=== PATIENT | female | born 1990 ===

== ENCOUNTER 2024-08-12 14:45 | Inpatient (IN) | payer OTHER ==
[~2024-08-12] VITALS: Ht 162.6 cm; Wt 87.5 kg
[2024-08-20 12:51] VITALS: BP 122/72
[2024-08-20] MEDS ORDERED: AMPICILLIN SODIUM 2,000 MG VIAL IV ONE (13:00)
[2024-08-20] MEDS ORDERED: AMPICILLIN SODIUM 2,000 MG VIAL ONE (13:15)
[2024-08-20] MEDS ORDERED: PRENATAL TABLE1 EAC1 PO (13:32)
[2024-08-20 13:56] LABS: HEMATOCRIT 33.3 % (36.0-45.00); HEMOGLOBIN 10.9 g/dL (12.0-15.00); MEAN CELL VOLUME 84.8 fL (80.00-100.00); MEAN CORPUSCULAR HEMOGLOBIN 27.6 pg (27.00-32.0); MEAN CORPUSCULAR HGB CONC 32.6 g/dl (32.0-36.0); PLATELET COUNT 206 K/uL (150-450); RED BLOOD COUNT 3.93 M/uL (4.00-6.00); RED CELL DISTRIBUTION WIDTH 14.6 % (11.5-14.5)
[2024-08-20] MEDS ORDERED: RINGERS SOLUTION,LACTATED 1,000 ML IV SCH (14:15)
[2024-08-20 14:37] LABS: INR < 0.93; PARTIAL THROMBOPLASTIN TIME 27.6 SECONDS (22.0-34.0)
[2024-08-20 14:47] LABS: PROTHROMBIN TIME 10.2 SECONDS (9.0-11.5)
[2024-08-20 15:24] VITALS: BP 109/66
[2024-08-20 15:34] LABS: ALBUMIN 2.8 gm/dL (3.4-5.0); BILIRUBIN TOTAL 0.3 mg/dL (0.3-1.2); CALCIUM 9.2 mg/dL (8.5-10.1); CREATININE SERUM 0.86 mg/dL (0.55-1.02); GFR 75.53; GLOBULINA 4.2 G/DL (2.4-3.5); POTASSIUM 3.99 mEq/L (3.5-5.1)
[2024-08-20] MEDS ORDERED: MISOPROSTOL 25 MCG TABLET ONE (16:50)
[2024-08-20] MEDS ORDERED: AMPICILLIN SODIUM 1,000 MG VIAL IV SCH (17:00)
[2024-08-20] MEDS ORDERED: MISOPROSTOL 25 MCG TABLET VAG ONE (17:15)
[2024-08-20 20:27] VITALS: BP 131/74
[2024-08-20 23:39] VITALS: BP 133/76
[2024-08-21] VITALS (10 sets, daily range): BP systolic 113–143; BP diastolic 58–76
[2024-08-21] MEDS ORDERED: OXYTOCIN 20 UNITS/500ML RL PIGGYBAG IV ONE (07:17)
[2024-08-21] MEDS ORDERED: OXYTOCIN 500 ML IV ONE (08:00)
[2024-08-21] MEDS ORDERED: MORPHINE SULFATE 4 MG/ML CARTRIDGE IV PRN (08:45)
[2024-08-21] MEDS ORDERED: MORPHINE SULFATE 4 MG/ML VIAL IV STA (09:51)
[2024-08-21] MEDS ORDERED: LIDOCAINE HCL 1% 10ML VIAL ONE (12:49)
[2024-08-21] MEDS ORDERED: OXYTOCIN 20 UNITS/1000ML RL PIGGYBAG IV ONE (12:49)
[2024-08-21] MEDS ORDERED: CHLORHEXIDINE GLUCONATE 120 ML BOTTLE TOP ONE ×2 (12:49→18:00)
[2024-08-21] MEDS ORDERED: ERYTHROMYCIN BASE OPHT 1GM EACH TUBE OP ONE ×2 (12:49→18:00)
[2024-08-21] MEDS ORDERED: NALOXONE HCL 0.4 MG/ML AMPUL ONE (16:58)
[2024-08-21] MEDS ORDERED: NALOXONE HCL 0.4 MG/ML AMPUL IM STA (17:53)
[2024-08-21] MEDS ORDERED: OXYTOCIN 1,000 ML IV SCH ×2 (18:00→21:30)
[2024-08-21] MEDS ORDERED: CHLORHEXIDINE GLUCONATE 120 ML BOTTLE TP SCH (21:30)
[2024-08-21] MEDS ORDERED: IBUprofen 400 MG TABLET PO PRN (21:30)
[2024-08-22 00:13] VITALS: BP 99/60
[2024-08-22 07:00] VITALS: BP 130/72
[2024-08-22 07:39] LABS: HEMATOCRIT 30.3 % (36.0-45.00); HEMOGLOBIN 9.8 g/dL (12.0-15.00); MEAN CELL VOLUME 85.4 fL (80.00-100.00); MEAN CORPUSCULAR HEMOGLOBIN 27.7 pg (27.00-32.0); MEAN CORPUSCULAR HGB CONC 32.4 g/dl (32.0-36.0); PLATELET COUNT 178 K/uL (150-450); RED BLOOD COUNT 3.54 M/uL (4.00-6.00); RED CELL DISTRIBUTION WIDTH 14.3 % (11.5-14.5)
[2024-08-22 15:00] VITALS: BP 123/70
[2024-08-23 02:52] VITALS: BP 119/67
[2024-08-23 08:17] VITALS: BP 131/71
== END 2024-08-23 18:13 | disposition home or self-care (01) | DRG 807 ==
LOC: LDR 08-17 14:45 → OB/GYN 08-21 17:35
PROVIDERS: Obstetrics & Gynecology; ADMIT Obstetrics & Gynecology; ATTEND Obstetrics & Gynecology
PROC: 3E0P7VZ Introduction of Hormone into Female Reproductive, Via Natural or Artificial Opening (ICD-10-PCS; 2024-08-20)
PROC: 4A1HXCZ Monitoring of Products of Conception, Cardiac Rate, External Approach (ICD-10-PCS; 2024-08-20)
PROC: 10E0XZZ Delivery of Products of Conception, External Approach (ICD-10-PCS; principal; 2024-08-21)
PROC: 0KQM0ZZ Repair Perineum Muscle, Open Approach (ICD-10-PCS; 2024-08-21)
PROC: 3E033VJ Introduction of Other Hormone into Peripheral Vein, Percutaneous Approach (ICD-10-PCS; 2024-08-21)
DX: O70.1 Second degree perineal laceration during delivery (principal); Z37.0 Single live birth; O69.81X0 Labor and delivery complicated by cord around neck, without compression, not applicable or unspecified; Z3A.40 40 weeks gestation of pregnancy